=== PATIENT | male | born 1960 | race Caucasian/White ===

== ENCOUNTER 2023-11-26 09:52 | Outpatient (AMB) | payer OTHER, SELFPAY ==
--- NOTE | 2023-11-26 10:01 | A.OFFPC_ITS ---
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 Tera Pradhan Last office visit/CPE: January, Acute issue(s): Middle?finger?periungual?abscess PMHx: Gout, R olecranon bone spur, Sarcidoisis SurgHx: R olecranon bone spur. Neck LN biopsy. FHx: Dad: DM type 1. Mom: Breast CA, Lung CA. Brother: Prostate CA & Alcoholism SocHx: Smokes cigars 2-3 a week. EtOH: q.o.d. 2-3 drinks per episode. PFSH Medical History (Updated 11/26/23 @ 10:46 by Austin Paulson) High urine uric acid level Bone spur Family History (Updated 11/26/23 @ 10:09 by Jacque Hemphill CULTURIST) Mother Breast cancer Lung cancer Father Diabetes Brother Prostate cancer Substance abuse in family Social History (Updated 11/26/23 @ 10:12 by Jacque Hemphill CMA) Household Members: Spouse Both parents involved: No Caregiver staying overnight: No Housing: House Are you a primary healthcare administration intern to a significant other at home: No Do you presently have visiting nurse or other home services: No 75 years or older and lives alone: No Alcohol intake: current Alcohol intake frequency: a few times a week Alcohol type: beer, wine and hard liquor Tobacco use type: Cigar Cigarette Packs Per Day: 2 (weekly) e-Cigarette/Vaping Use: Never Used Have you been hit, kicked, punched, or otherwise hurt by someone within the past year? If so, by whom?: No Do you feel safe in your current relationship?: Yes Is there a partner from a previous relationship who is making you feel unsafe now?: No Are you made to feel afraid or neglected: No [employer] Healthcare Practices: Tenriism Are you DNR?: No Advance Directives: No Healthcare Proxy: No service: No Current occupational status: retired Cognitive needs: No Hearing needs: No Vision needs: Yes (Patient wears reading glasses.) Questionnaire PHQ-9 Over the last 2 weeks, how often have you been bothered by any of the following problems? 1. Little interest or pleasure in doing things: not at all 2. Feeling down, depressed, or hopeless: not at all 3. Trouble falling or staying asleep, or sleeping too much: several days 4. Feeling tired or having little energy: not at all 5. Poor appetite or overeating: not at all 6. Feeling bad about yourself - or that you are a failure or have let yourself or your family down: not at all 7. Trouble concentrating on things, such as reading the newspaper or watching television: not at all 8. Moving or speaking so slowly that other people could have noticed. Or the opposite - being so fidgety or restless that you have been moving around a lot more than usual: not at all 9. Thoughts that you would be better off or of hurting yourself in some way: not at all Total score: 1 Depression Screening Interpretation: Negative Depression Screening Done: Yes 27327 - PHQ-9 Billing: Yes Source: Developed by Drs. Harmna La, Xiomy Lock, Eb Haynes and colleagues, with an educational lauren from [employer]. Thrive Questionnaire Date Thrive assessed: 11/26/23 I am a: Patient What is your living situation today?: I have a steady place to live Within the past 12 months, did the food you bought not last and you didn't have the money to get more?: Never true Within the past 12 months, did you worry whether your food would run out before you got money to buy more?: Never true Do you have trouble paying for medicines?: No Do you have trouble getting transportation to medical appointments?: No Do you have trouble paying your heating and electricity bill?: No Do you have trouble taking care of your child, family member or friend?: No Do you have trouble with day-to-day activities such as bathing, preparing meals, shopping, managing finances, etc.?: No Are you currently unemployed and looking for a job?: No Are you interested in more education?: No THRIVE Score: 0 AUDIT C Alcohol Use Questionnaire (AUDIT-C) 1. How often do you have a drink containing alcohol?: 2-3 times a week 2. How many drinks containing alcohol do you have on a typical day when you are drinking?: 3 or 4 3. How often do you have six or more drinks on one occasion?: Weekly Total Score: 7 JIM-7 AMB Questionnaire JIM-7 Date JIM - 7 assessed: 11/26/23 Feeling nervous, anxious, or on edge: 0 = Not at all Not being able to stop or control worryin = Not at all Worrying too much about different things: 0 = Not at all Trouble relaxin = Not at all Being so restless that it is hard to sit still: 0 = Not at all Becoming easily annoyed or irritable: 0 = Not at all Feeling afraid as if something awful might happen: 0 = Not at all Total JIM-7 score (0-4 normal; 5-9 mild; 10-14 moderate; 15-21 severe): 0 Source: Developed by Drs. Harman La, Xiomy Lock, Eb Haynes and colleagues, with an educational lauren from [employer]. JIM-7 Assessment Billing JIM-7 Assessment Tool: JIM-7 Assessment 23788 Review of Systems Const Denies chills, Denies fatigue, Denies fever(s), Denies headache(s) and Denies weakness ENT Denies dizziness and Denies headache(s) Card Denies chest pain, Denies lightheadedness, Denies dyspnea and Denies other (Palpitations) Resp Denies cough, Denies dyspnea, Denies wheezing and Denies other ( shortness of breath) Musc Denies numbness and Denies tingling Neuro Denies dizziness, Denies headache(s), Denies numbness, Denies tingling, Denies p aresthesias and Denies weakness Psych Denies anxiety and Denies depression Endo Denies fatigue Aller/Immun Denies wheezing Physical exam (Primary Care) Vital Signs: Last Vital Signs Pulse 73 11/26/23 10:02 BP 122/77 11/26/23 10:02 Pulse Ox 96 11/26/23 10:02 Oxygen Delivery Method Room Air 11/26/23 10:02 BMI result Body Mass Index 35.0 Tobacco/Smoking Status: Tobacco use Status Tobacco use date assessed 11/26/23 11/26/23 10:19 Tobacco use type Cigar 11/26/23 10:19 e-Cigarette/Vaping Use Never Used 11/26/23 10:19 PHQ-9: PHQ-9 Score PHQ-9: Total score 1 11/26/23 10:21 Depression Screening Interpretation: Negative Thrive Assessment: Date of Thrive Assessment Date Thrive assessed 11/26/23 11/26/23 10:05 Const General: no acute distress and well developed Nutritional Appearance: well nourished Orientation/consciousness: patient oriented x3 HENMT Head: Yes normocephalic and Yes atraumatic Eyes General: appearance normal, both eyes and all related structures Pupils: Equal, round and reactive pupils present EOM: EOMs intact bilaterally Resp Effort & Inspection: normal respiratory effort Auscultation: clear to auscultation bilaterally Cardio Rate: regular rate Rhythm: regular rhythm Heart sounds: S1 normal heart sound present, S2 normal heart sound present, no gallops, no murmurs and no rubs Neuro General: patient oriented x3 and gait normal Cranial nerves: Yes Equal, round and reactive pupils present Psych Affect: normal affect Assessment and Plan Assessment & Plan (1) Abscess of finger: Code(s): L02.519 - Cutaneous abscess of unspecified hand Plan: Patient?incised?and?drained?this?at?home?and?has?had?recurrent?Epson?salt?soaks. Infection?appears?to?have?resolved?though?he?still?has?mild?swelling Continue?to?monitor Call?or?return?to?office?if?infection?returns?and?we?could?use?an?antibiotic?and ?perform?another?I?and?D?if?necessary. (2) Gout: Code(s): M10.9 - Gout, unspecified Plan: History?of?gout?and?elevated?uric?acid?levels. He?is?on?allopurinol?300?mg?daily Stable Continue?allopurinol?as?prescribed (3) Sarcoidosis: Code(s): D86.9 - Sarcoidosis, unspecified Plan: History?of?sarcoidosis?about?30?years?ago?with?no?further?recurrence. (4) Laboratory exam ordered as part of routine general medical examination: Code(s): Z00.00 - Encounter for general adult medical examination without abnormal findings Plan: Check?lab Orders: Orders Lipid Panel Today Z00.00 - Encounter for general adult medical examination without abnormal findings Microalbumin, Random (w Creat) Today I10 - Essential (primary) hypertension TSH reflex Free T4 Today Z00.00 - Encounter for general adult medical examination without abnormal findings UA and rflx microscopic Today Z00.00 - Encounter for general adult medical examination without abnormal findings Uric Acid Today M10.9 - Gout, unspecified Comprehensive Billings. Panel Fast Today Z00.00 - Encounter for general adult medical examination without abnormal findings Prostate Specific Antigen Scr Today Z12.5 - Encounter for screening for malignant neoplasm of prostate Coding Level of Care Code New Pt Level 3 (39149) Diagnoses Abscess of finger L02.519 Gout M10.9 Sarcoidosis D86.9 Laboratory exam ordered as part of routine general medical examination Z00.00 Additional Codes JIM-7 Assessment Billing - JIM-7 Assessment Tool: JIM-7 Assessment 82136 ([id number])
[2023-11-26 10:02] VITALS: BP 122/77; PULSE 73; O2SAT 96; BMI 35.0
== END 2023-11-26 10:53 | disposition home or self-care (01) ==
PROVIDERS: PCP Family Medicine; Visit Provider Family Medicine
DX: L02.519 Cutaneous abscess of unspecified hand (principal); M10.9 Gout, unspecified; D86.9 Sarcoidosis, unspecified; Z00.00 Encounter for general adult medical examination without abnormal findings
CPT/HCPCS: 99203

== ENCOUNTER 2024-02-09 09:06 | Outpatient (REF) | payer OTHER, SELFPAY ==
[2024-02-09 11:16] LABS: Appearance Urine Clear; Color Urine Yellow; Glucose Urine UA Negative (Negative); Leukocyte Esterase Urine Negative (Negative); Nitrite Urine Negative (Negative); Urine Blood Negative (Negative); Urine Ketones Negative (Negative); Urine Protein Negative (Neg-Trace)
[2024-02-09 11:35] LABS: Alanine Aminotransferase 22 U/L (0-40); Albumin Level 4.6 g/dL (3.5-5.0); Alkaline Phosphatase 65 U/L (39-117); Anion Gap 12 (12-20); Aspartate Amino Transferase 29 U/L (5-37); Bilirubin Total 0.4 mg/dL (0.0-1.0); Blood Urea Nitrogen 15 mg/dL (9-16); Calcium 9.8 mg/dL (8.4-10.2); Carbon Dioxide 28 mmol/L (22-29); Chloride 102 mmol/L (96-108); Cholesterol 219 mg/dL (<200); Estimated Glomerular Filt Rate > 60; Glucose Fasting 96 mg/dL (60-99); HDL Cholesterol 71 mg/dL (>40); LDL Cholesterol Calculated 134 mg/dL (<100); Potassium 4.2 mmol/L (3.3-5.1); Sodium 138 mmol/L (135-145); Total Protein 7.6 g/dL (6.5-8.0); Triglycerides 73 mg/dL (<150)
[2024-02-09 11:52] LABS: Creatinine Urine 32.54 mg/dL; Microalbumin Urine < 5.0 mg/L
[2024-02-09 11:55] LABS: Prostate Specific Antigen Scr 1.67 ng/mL (<0.05-4.0)
[2024-02-09 11:57] LABS: TSH reflex Free T4 1.14 uIU/mL (0.32-4.0)
[2024-02-09 12:05] LABS: Uric Acid 5.2 mg/dL (3.4-7.0)
== END 2024-02-09 09:07 | disposition home or self-care (01) ==
LOC: HO.WFDLDS 09:06
PROVIDERS: Visit Provider Family Medicine
DX: Z00.00 Encounter for general adult medical examination without abnormal findings (principal); I10 Essential (primary) hypertension; Z12.5 Encounter for screening for malignant neoplasm of prostate; M10.9 Gout, unspecified
CPT/HCPCS: 36415; 80053; 80061; 81003; 82570; 84153; 84443; 84550

== ENCOUNTER 2024-02-17 08:51 | Outpatient (AMB) | payer OTHER, SELFPAY ==
--- NOTE | 2024-02-17 09:03 | MHC.PC.OV ---
Vital Signs 02/17/24 09:08 Height 5 ft 10.5 in Weight 267 lb BMI 37.8 BP 120/77 Blood Pressure Location Rt brachial Position Sitting Pulse 67 Pulse Source Pulse Oximeter Temp 97.5 F Temp Source Temporal Artery Scan Pulse Oximetry (%) 97 Oxygen Delivery Method Room Air Intake Visit Reasons: CPE with f/u labs and health maint Intake Note: Patient is here for a physical. Patient reports he would like a referral for dermatology. Patient would like to discuss allopurinol and its ability to raise LFT. Patient would like to test for liver. Log Deckman Required: No Accompanied by: Self / Same As Patient Allergies No Known Allergies Allergy (Verified 02/17/24 09:14) Tobacco use date assessed: 11/26/23 Dental Screening Dental Screen Date: 11/26/23 HPI HPI Comments History of Present Illness Details 63 year old male with borderline hyperlipidemia, gout, hyperuricemia, remote sarcoid presenting to establish care and for physical exam Gout: on allopurinol. No recent episodes of gout Approx 20 years ago patient had unintentional weight loss. Biopsy of lymph node-lymphoma or sarcoid. More consistent with sarcoid. as treated with steroids gained weight and has done good since Colonoscopy with Shelton Dickerson in 2022-polyp was told to repeat in 3 years UTD shingles vaccine ROS CONSTITUTIONAL: Denies weight loss, fever and chills. HEENT: Denies changes in vision and hearing. RESPIRATORY: Denies SOB and cough. CV: Denies palpitations and CP GI: Denies abdominal pain, nausea, vomiting and diarrhea. : Denies dysuria and urinary frequency. MSK: Denies new myalgia and joint pain. SKIN: Denies rash and pruritus. NEUROLOGICAL: Denies headache PSYCHIATRIC: Denies recent changes in mood. PHYSICAL EXAM: GENERAL: Alert and oriented x 3. NAD EYES: EOMI. Anicteric. HENT: Moist mucous membranes. No scleral icterus. No cervical lymphadenopathy. LUNGS: Clear to auscultation bilaterally. CARDIOVASCULAR: Regular rate and rhythm. No murmur. No JVD. ABDOMEN: Soft, non-tender +bs EXTREMITIES: No edema. Non-tender. SKIN: No rashes or lesions. Warm. NEUROLOGIC: No focal neurological deficits. CN II-XII grossly intact PSYCHIATRIC: Cooperative. Appropriate mood and affect [facility] Medical History (Updated 02/22/24 @ 21:04 by Ijeoma Sood MD) High urine uric acid level Bone spur Family History (Updated 11/26/23 @ 10:09 by Jacque Hemphill CMA) Mother Breast cancer Lung cancer Father Diabetes Brother Prostate cancer Substance abuse in family Social History (Updated 11/26/23 @ 10:12 by Jacque Hemphill CMA) Household Members: Spouse Both parents involved: No Caregiver staying overnight: No Housing: House Are you a primary critical care specialist to a significant other at home: No Do you presently have visiting nurse or other home services: No 75 years or older and lives alone: No Alcohol intake: current Alcohol intake frequency: a few times a week Alcohol type: beer, wine and hard liquor Patient Tobacco Use Status: Current someday Tobacco user Tobacco use type: Cigar Cigarette Packs Per Day: 2 (weekly) e-Cigarette/Vaping Use: Never Used service: No Current occupational status: retired Cognitive needs: No Hearing needs: No Vision needs: Yes (Patient wears reading glasses.) Questionnaire Thrive Questionnaire Date Thrive assessed: 11/26/23 JIM-7 AMB Questionnaire JIM-7 Date JIM - 7 assessed: 11/26/23 Source: Developed by Drs. Harman La, Xiomy Lock, Eb Haynes and colleagues, with an educational lauren from [employer]. Physical exam (Primary Care) Vital Signs: Last Vital Signs Temp 97.5 F 02/17/24 09:08 Pulse 67 02/17/24 09:08 BP 120/77 02/17/24 09:08 Pulse Ox 97 02/17/24 09:08 Oxygen Delivery Method Room Air 02/17/24 09:08 BMI result Body Mass Index 37.8 Tobacco/Smoking Status: Tobacco use Status Tobacco use date assessed 11/26/23 02/17/24 09:03 Patient Tobacco Use Status Current someday Tobacco 02/17/24 09:12 Tobacco use type Cigar 02/17/24 09:03 e-Cigarette/Vaping Use Never Used 02/17/24 09:03 Thrive Assessment: Date of Thrive Assessment Date Thrive assessed 11/26/23 02/17/24 09:03 Assessment and Plan Assessment & Plan (1) Sarcoidosis: Code(s): D86.9 - Sarcoidosis, unspecified (2) Gout: Code(s): M10.9 - Gout, unspecified (3) Laboratory exam ordered as part of routine general medical examination: Code(s): Z00.00 - Encounter for general adult medical examination without abnormal findings Plan: Preventive measures for age discussed. Chronic medical conditions reviewed Orders: Referrals Dermatology Referral L57.0 - Actinic keratosis Coding Level of Care Code Est Pt Prev Care 40-64y(13663) Diagnoses Sarcoidosis D86.9 Gout M10.9 Laboratory exam ordered as part of routine general medical examination Z00.00
[2024-02-17 09:08] VITALS: BP 120/77; PULSE 67; TEMP 36.4; O2SAT 97; BMI 37.8
== END 2024-02-17 09:57 | disposition home or self-care (01) ==
PROVIDERS: PCP Internal Medicine; Visit Provider Internal Medicine
DX: D86.9 Sarcoidosis, unspecified (principal); M10.9 Gout, unspecified; Z00.00 Encounter for general adult medical examination without abnormal findings
CPT/HCPCS: 99396

== ENCOUNTER 2024-06-01 08:34 | Outpatient (AMB) | payer OTHER, SELFPAY ==
--- NOTE | 2024-06-01 08:47 | MHC.PC.OV ---
Vital Signs 06/01/24 08:51 Height 5 ft 10.5 in Weight 250 lb 6 oz BMI 35.4 BP 110/70 Blood Pressure Location Rt brachial Position Sitting Respiration 14 Pulse 73 Pulse Source Pulse Oximeter Pulse Oximetry (%) 97 Oxygen Delivery Method Room Air Intake Visit Reasons: back & leg pain Intake Note: Lower right back pain. 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 Lower back pain -about belt line worse on the right some radiation down the buttock and right leg. Denies right leg weakness. No b/b incontinence. Advil helps the pain Went to PT in the to chiropractor-did manipulation then TENS in past which helped. Gout: on allopurinol. No recent episodes of gout Approx 20 years ago patient had unintentional weight loss. Biopsy of lymph node-lymphoma or sarcoid. More consistent with sarcoid. as treated with steroids gained weight and has done good since Colonoscopy with Shelton Dickerson in 2022-polyp was told to repeat in 3 years UTD shingles vaccine ROS see HPI PHYSICAL EXAM: GENERAL: Alert and oriented x 3. NAD EYES: EOMI. Anicteric. HENT: Moist mucous membranes. No scleral icterus. No cervical lymphadenopathy. LUNGS: Clear to auscultation bilaterally. CARDIOVASCULAR: Regular rate and rhythm. No murmur. No JVD. ABDOMEN: Soft, non-tender +bs MSK: Right lumbar paraspinal spasm EXTREMITIES: No edema. Non-tender. SKIN: No rashes or lesions. Warm. NEUROLOGIC: No focal neurological deficits. 5/5 LE strength bilaterally CN II-XII grossly intact PSYCHIATRIC: Cooperative. Appropriate mood and affect [facility] Medical History (Updated 06/02/24 @ 16:07 by Ijeoma Sood MD) High urine uric acid level Bone spur Family History (Updated 11/26/23 @ 10:09 by Jacque Hemphill CMA) Mother Breast cancer Lung cancer Father Diabetes Brother Prostate cancer Substance abuse in family Social History (Updated 11/26/23 @ 10:12 by Jacque Hemphill [facility] [address]) Household Members: Spouse Both parents involved: No Caregiver staying overnight: No Housing: House Are you a primary adult caregiver to a significant other at home: No Do you presently have visiting nurse or other home services: No 75 years or older and lives alone: No Alcohol intake: current Alcohol intake frequency: a few times a week Alcohol type: beer, wine and hard liquor Patient Tobacco Use Status: Current someday Tobacco user Tobacco use type: Cigar Cigarette Packs Per Day: 2 (weekly) e-Cigarette/Vaping Use: Never Used service: No Current occupational status: retired Cognitive needs: No Hearing needs: No Vision needs: Yes (Patient wears reading glasses.) Questionnaire PHQ-9 Over the last 2 weeks, how often have you been bothered by any of the following problems? 1. Little interest or pleasure in doing things: not at all 2. Feeling down, depressed, or hopeless: not at all 3. Trouble falling or staying asleep, or sleeping too much: not at all 4. Feeling tired or having little energy: not at all 5. Poor appetite or overeating: not at all 6. Feeling bad about yourself - or that you are a failure or have let yourself or your family down: not at all 7. Trouble concentrating on things, such as reading the newspaper or watching television: not at all 8. Moving or speaking so slowly that other people could have noticed. Or the opposite - being so fidgety or restless that you have been moving around a lot more than usual: not at all 9. Thoughts that you would be better off or of hurting yourself in some way: not at all Total score: 0 Source: Developed by Drs. Harman La, Xiomy Lock, Eb Haynes and colleagues, with an educational lauren from [employer]. Thrive Questionnaire Date Thrive assessed: 05/29/24 I am a: Patient What is your living situation today?: I have a steady place to live Within the past 12 months, did the food you bought not last and you didn't have the money to get more?: Never true Within the past 12 months, did you worry whether your food would run out before you got money to buy more?: Never true Do you have trouble paying for medicines?: No Do you have trouble getting transportation to medical appointments?: No Do you have trouble paying your heating and electricity bill?: No Do you have trouble taking care of your child, family member or friend?: No Do you have trouble with day-to-day activities such as bathing, preparing meals, shopping, managing finances, etc.?: No Are you currently unemployed and looking for a job?: No Are you interested in more education?: No Please select the resources that you would like help with: None Currently or been in a relationship where the following occur: No concerns reported THRIVE Score: 0 AUDIT C Alcohol Use Questionnaire (AUDIT-C) 1. How often do you have a drink containing alcohol?: 2-3 times a week 2. How many drinks containing alcohol do you have on a typical day when you are drinking?: 1 or 2 3. How often do you have six or more drinks on one occasion?: Never Total Score: 3 JIM-7 AMB Questionnaire JIM-7 Date JIM - 7 assessed: 11/26/23 Feeling nervous, anxious, or on edge: 0 = Not at all Not being able to stop or control worryin = Not at all Worrying too much about different things: 0 = Not at all Trouble relaxin = Not at all Being so restless that it is hard to sit still: 0 = Not at all Becoming easily annoyed or irritable: 0 = Not at all Feeling afraid as if something awful might happen: 0 = Not at all Total JIM-7 score (0-4 normal; 5-9 mild; 10-14 moderate; 15-21 severe): 0 Source: Developed by Drs. Harman La, Xiomy Lock, Eb Haynes and colleagues, with an educational lauren from [employer]. Physical exam (Primary Care) Vital Signs: Last Vital Signs Pulse 73 06/01/24 08:51 Resp 14 06/01/24 08:51 BP 110/70 06/01/24 08:51 Pulse Ox 97 06/01/24 08:51 Oxygen Delivery Method Room Air 06/01/24 08:51 BMI result Body Mass Index 35.4 Tobacco/Smoking Status: Tobacco use Status Tobacco use date assessed 11/26/23 06/01/24 08:48 Patient Tobacco Use Status Current someday Tobacco 06/01/24 08:48 Tobacco use type Cigar 06/01/24 08:48 e-Cigarette/Vaping Use Never Used 06/01/24 08:48 PHQ-9: PHQ-9 Score PHQ-9: Total score 0 06/01/24 09:05 Thrive Assessment: Date of Thrive Assessment Date Thrive assessed 05/29/24 06/01/24 08:48 Currently or been in a relationship where the following occur: No concerns reported Coding Level of Care Code Est Pt Level 4 (87139) Diagnoses Acute right-sided low back pain with right-sided sciatica M54.41 Chronicity: acute Back pain laterality: right Sciatica presence: with sciatica Sciatica laterality: sciatica of right side Assessment & Plan Assessment & Plan (1) Low back pain: Code(s): M54.50 - Low back pain, unspecified Category: Medical Qualifiers: Chronicity: acute Back pain laterality: right Sciatica presence: with sciatica Sciatica laterality: sciatica of right side Qualified Code(s): M54.41 - Lumbago with sciatica, right side Plan: Acute muscular strain versus annular tear versus herniated disc Prednisone sent, muscle relaxer before bed Gentle stretching. Ice/heat Xray ordered. Had previous remotely with DDD Orders: Orders XR lumbar spine 2-3V 06/01/24 M54.50 - Low back pain, unspecified Referrals Physiatry Referral M54.50 - Low back pain, unspecified Medications: New prednisone 40 mg (2 x 20 mg) PO DAILY 10 tabs 0RF 5 days cyclobenzaprine 10 mg PO BEDTIME PRN 30 tabs 0RF muscle spasm
[2024-06-01 08:51] VITALS: BP 110/70; PULSE 73; RESP 14; O2SAT 97; BMI 35.4
== END 2024-06-01 09:32 | disposition home or self-care (01) ==
PROVIDERS: PCP Internal Medicine; Visit Provider Internal Medicine
DX: M54.41 Lumbago with sciatica, right side (principal)

== ENCOUNTER 2024-06-01 08:34 | Outpatient (REF) | payer OTHER, SELFPAY ==
--- NOTE | ~2024-06-01 | XR_ITS ---
EXAMINATION: XR LUMBOSACRAL SPINE CLINICAL INFORMATION: Low back pain COMPARISON: None available. TECHNIQUE: Three views of the lumbosacral spine. FINDINGS: Mild multilevel degenerative disc disease with prominent anterior endplate osteophytes. No fracture or malalignment. No spondylolysis or spondylolisthesis. XR/XR lumbar spine 2-3V IMPRESSION: Mild multilevel degenerative disc disease. No acute abnormality. Electronically signed by: Ezio Louis MD 06/01/2024 11:46 AM [facility]
== END 2024-06-01 08:35 | disposition home or self-care (01) ==
LOC: HO.XRAY 08:34
PROVIDERS: PCP Internal Medicine; Visit Provider Internal Medicine
DX: M54.41 Lumbago with sciatica, right side (principal)
CPT/HCPCS: 72100; 96127; 99212

== ENCOUNTER 2025-02-15 10:47 | Outpatient (REF) | payer OTHER, SELFPAY ==
--- OUTSIDE RECORDS SUMMARY | 2025-02-15 11:57 | XMS_ITS ---
Author Name [facility] Organization Unknown Encounters Encounter Type Encounter Reason Primary Diagnosis Location Date Ambulatory [facility] 12/11/2023 Ambulatory Encounter for screening for malignant neoplasm of colon Encounter for screening for malignant neoplasm of colon [facility] 02/27/2023 Care Team Organization Name Specialty Phone Email Start Date End Da te [facility] 06/05/2023 [facility] 3 [facility] 3 02/27/2023
--- OUTSIDE RECORDS SUMMARY | 2025-02-15 11:57 | XMS_ITS | Clinical Summary ---
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 Name Role Phone Unavailable Primary Care Provider Unavailabl e Social History Tobacco Use Types Packs/Day Years Used Date Smoking Tobacco: Never Assessed Sex and Gender Information Value Date Recorded Sex Assigned at Not on file Legal Sex Male 12:41 PM EDT Gender Identity Not on file Sexual Orientation Not on file Plan of Treatment Health Maintenance Due Date Last Done Comments Hepatitis C Virus Screening 1960 HIV Screening 1975 DTaP/Tdap/Td Vaccines (1 - Tdap) 1981 Pneumococcal Vaccines 50+ (1 of 1 - PCV) 02/25/2012 Zoster (Shingles) Vaccine (1 of 2) 02/25/2012 COVID-19 Vaccine ( - 2023-2 5 season) 2024 RSV Vaccine 60 years and old er and Patients (1 - 1-dose 75+ series) 2037 Hepatitis B Vaccines Aged Out No long er eligible based on patient's age to complete this topic
--- OUTSIDE RECORDS SUMMARY | 2025-02-15 11:57 | XMS_ITS | Clinical Summary ---
Author Organization [facility] it Address [id number] [place] [phone] Care Team Providers Care Role Player Name Role Phone Tera Pradhan MD Primary Care Provider [phone] Social History Tobacco Use Types Packs/Day Years Used Date Smoking Tobacco: Never Assessed Sex and Gender Information Value Date Recorded Sex Assigned at Not on file Legal Sex Male 7:41 AM EST Gender Identity Not on file Sexual Orientation Not on file Plan of Treatment Health Maintenance Due Date Last Done Comments DTaP,Tdap,and Td Vaccines (1 - Tdap) 1981 Pneumococcal Vaccine: 50+ Ye ars (1 of 1 - PCV) 02/25/2012 Zoster Vaccines (1 of 2) 02/25/2012 Cholesterol Screening (Lipid Panel) 06/23/2022 Colorectal Cancer Screening: Colonoscopy 06/23/2022 HIV Screening 06/23/2022 Hepatitis C Screening 06/23/2022 Social Influencers of Health Screening 06/23/2022 COVID-19 Vaccine ( - 2023-2 5 season) 2024 Depression Screening 07/21/2024 Influenza Vaccine (#1) 2025 RSV Immunization Adult Patie nts (1 - 1-dose 75+ series) 2037 HIB Vaccines Aged Out No longer eligi ble based on patient's age to complete this topic HPV Vaccines Aged Out No longer eligi ble based on patient's age to complete this topic Hepatitis A Vaccines Aged Out No long er eligible based on patient's age to complete this topic Hepatitis B Vaccines Aged Out No long er eligible based on patient's age to complete this topic IPV Vaccines Aged Out No longer eligi ble based on patient's age to complete this topic MMR Vaccines Aged Out No longer eligi ble based on patient's age to complete this topic Meningococcal ACWY Vaccine Aged Out N o longer eligible based on patient's age to complete this topic Meningococcal B Vaccine Aged Out No l onger eligible based on patient's age to complete this topic RSV Immunization Patients Un shani 20 months Aged Out No longer eligible b ased on patient's age to complete this topic Varicella Vaccines Aged Out No longer eligible based on patient's age to complete this topic Care Teams Role Player Relationship Specialty Start Date End Date Tera Pradhan MD [address] [place] [phone] PCP - General 03/03/23
--- OUTSIDE RECORDS SUMMARY | 2025-02-15 11:57 | XMS_ITS | Clinical Summary ---
Author Organization [facility] [employer] [facility] Address [address] [place] [address] Care Team Providers Care Specimen Collector Name Role Phone Tera Pradhan MD Primary Care Provider Unavaila ble Allergies No known active allergies Medications Medication Sig Dispensed Refills Start Date End Date Status ALLOPURINOL PO Take by mouth. 0 Active Social History Tobacco Use Types Packs/Day Years Used Date Smoking Tobacco: Never Assessed Sex and Gender Information Value Date Recorded Sex Assigned at Not on file Gender Identity Not on file Sexual Orientation Not on file Job Start Date Occupation Industry Not on file Not on file Not on file Plan of Treatment Health Maintenance Due Date Last Done Comments Hepatitis C Screening 1962 COVID-19 Vaccine (#1) 1962 Depression Screening 1974 Preventative Health Evaluation 02/25/1980 DTap / Tdap / Td (1 - Tdap) 1981 Colon Cancer Screening (Colonoscopy) 2007 Shingrix-Zoster Vaccine (2 of 2) 02/21/2022 12/28/19 22 Influenza Vaccine (#1) 2025 RSV Adult > 60+ Yrs or Pregn ant (1 - 1-dose 75+ series) 2037 Hepatitis B Vaccines Aged Out No long er eligible based on patient's age to complete this topic Pneumococcal Vaccine Aged Out No long er eligible based on patient's age to complete this topic RSV Ped < 20 months Aged Out No longe r eligible based on patient's age to complete this topic Care Teams Specimen Collector Relationship Specialty Start Date End Date Tera Pradhan MD PCP - General Family Medicine 03/03/23
--- OUTSIDE RECORDS SUMMARY | 2025-02-15 11:57 | XMS_ITS | Clinical Summary ---
Author Organization [facility] Address [address] [facility] [address] [place] [phone] Phone Care Team Providers Care Bilingual Medical Receptionist Name Role Phone Ijeoma Martinez MD Primary Care Provider Allergies No known active allergies Medications allopurinol (ZYLOPRIM) 300 MG tablet Take 1 tablet by mouth every morning. 12/15/2023 Active Active Problems No known active problems Immunizations Immunization Administration Dates Next Due Tdap 03/04/2024 Social History Tobacco Use Types Packs/Day Years Used Date Smoking Tobacco: Never Assessed Education Answer Date Recorded Are you interested in more education? Not on truman e 03/04/2024 Are you concerned about learning? Not on file 03/04/2024 No 03/04/2024 No 03/04/2024 Digital Access Answer Date Recorded No 03/04/2024 No 03/04/2024 Reliable internet access at home? Not on file 03/04/2024 Device with a working camera? Not on file Sex and Gender Information Value Date Recorded Sex Assigned at Not on file Legal Sex Male 4:21 PM EDT Gender Identity Not on file Sexual Orientation Not on file Last Filed Vital Signs Vital Sign Reading Time Taken Comments Blood Pressure 117/80 03/04/2024 5:41 PM EDT Pulse 71 03/04/2024 5:41 PM EDT Temperature 36.8 C (98.2 F) 03/04/2024 5:41 PM EDT Respiratory Rate 20 03/04/2024 5:41 PM EDT Oxygen Saturation 97% 03/04/2024 5:41 PM EDT Inhaled Oxygen Concentration - - Weight - - Height - - Body Mass Index - - Plan of Treatment Health Maintenance Due Date Last Done Comments CREATININE LEVEL 1962 LIPID PANEL 1962 DEPRESSION SCREENING 1974 SMOKING Hx and SMOKELESS TOB ACCO SCREENING 1975 HEPATITIS C SCREENING 02/25/1980 HIV ONE-TIME SCREENING (18-6 5 YEARS) 02/25/1980 COLOGUARD 2007 COLONOSCOPY 2007 COLORECTAL CANCER SCREENING 2007 FIT TEST 2007 FOBT 2007 SIGMOIDOSCOPY 2007 VIRTUAL COLONOSCOPY 2007 PNEUMOCOCCAL VACCINES (50+ y ears) (1 of 1 - PCV) 02/25/2012 ZOSTER VACCINES (2 of 2) 08/11/2022 06/16/2022 COVID-19 VACCINE (2 - 2023-2 5 season) 2024 10/26/2020 Adult Td,Tdap Booster 03/04/2034 03/04/2024 RSV VACCINE (1 - 1-dose 75+ series) 2037 HEPATITIS A VACCINES Aged Out No long er eligible based on patient's age to complete this topic HIB VACCINES Aged Out No longer eligi ble based on patient's age to complete this topic MENINGOCOCCAL VACCINES (ACWY) Aged Out No longer eligible based on patient's age to complete this topic MENINGOCOCCAL VACCINES (B) Aged Out N o longer eligible based on patient's age to complete this topic Medical Devices Not on file [facility] P[facility] DANGELO ROSALES [facility] NON NSPG [facility] [address] [place] [address] NON NSPG PCP [facility] NON NSPG [facility] NON NSPG [facility]CP [facility] NON NSPG PCP [facility] Care Teams Bilingual Medical Receptionist Relationship Specialty Start Date End Date Ijeoma Martinez MD PCP - General Internal Medicine 03/04/24 Additional Source Comments The information contained in this document represents components of the legal health record. It is not the complete legal health record.[facility]
[2025-02-15 14:01] LABS: MANUAL DIFF FLAG NO
[2025-02-15 14:14] LABS: Hematocrit 41.8 % (42.0-52.0); Hemoglobin 14.2 g/dl (14.0-18.0); Imm Gran Abs Auto 0.01 X10*3/uL (0.00-0.03); Imm Gran Pct Auto 0.1 % (0.0-0.4); Lymphocytes Absolute Auto 2.0 X10*3/uL (1.2-4.9); Mean Corpuscular HGB Conc 34.0 g/dl (31.0-36.0); Mean Corpuscular Hemoglobin 31.1 pg (27.0-33.0); Mean Corpuscular Volume 91.7 fL (80.0-98.0); NRBC Abs Auto 0.000 X10*3/uL (0.0-0.012); NRBC Pct Auto 0.0 /100WBC (0.0-0.2); Platelet Count 281 X10*3/uL (160-400); Red Blood Count 4.56 X10*6/uL (4.60-5.80); White Blood Count 6.7 X10*3/uL (4.8-10.8)
[2025-02-15 14:22] LABS: Hemoglobin A1C 126.0621 umol/L; Total Hemoglobin (HGBA1C) 3732.5745 umol/L
[2025-02-15 14:23] LABS: Alanine Aminotransferase 27 U/L (0-40); Albumin Level 4.5 g/dL (3.5-5.0); Alkaline Phosphatase 72 U/L (39-117); Anion Gap 11 (12-20); Aspartate Amino Transferase 39 U/L (5-37); Blood Urea Nitrogen 12 mg/dL (9-16); Calcium 9.0 mg/dL (8.4-10.2); Carbon Dioxide 25 mmol/L (22-29); Chloride 106 mmol/L (96-108); Cholesterol 213 mg/dL (<200); Estimated Glomerular Filt Rate > 60; HDL Cholesterol 66 mg/dL (>40); Potassium 4.2 mmol/L (3.3-5.1); Sodium 138 mmol/L (135-145); Total Protein 7.2 g/dL (6.5-8.0); Triglycerides 93 mg/dL (<150); Uric Acid 5.3 mg/dL (3.4-7.0)
== END 2025-02-15 10:48 | disposition home or self-care (01) ==
LOC: HO.WFDLDS 10:47
PROVIDERS: Visit Provider Internal Medicine
DX: Z13.228 Encounter for screening for other metabolic disorders (principal); D86.9 Sarcoidosis, unspecified; M10.9 Gout, unspecified; M54.41 Lumbago with sciatica, right side; R35.89 Other polyuria
CPT/HCPCS: 36415; 80053; 80061; 83036; 84550; 85025

== ENCOUNTER 2025-02-22 12:38 | Outpatient (AMB) | payer OTHER, SELFPAY ==
--- NOTE | 2025-02-22 12:43 | MHC.PC.OV ---
Vital Signs 02/22/25 12:45 Height 5 ft 10.5 in Weight 244 lb 8 oz BMI 34.6 BP 126/68 Blood Pressure Location Lt brachial Position Sitting Respiration 14 Pulse 77 Pulse Source Pulse Oximeter Temp 98.6 F Temp Source Oral Pulse Oximetry (%) 97 Oxygen Delivery Method Room Air Intake Visit Reasons: Physical Intake Note: Physical Registered Public Surveyor Required: No Allergies No Known Allergies Allergy (Verified 02/22/25 12:44) Tobacco use date assessed: 02/22/25 Dental Screening Dental Screen Date: 02/22/25 Did you have a dental visit in the last 12 months?: Yes Did you have a dental problem in the last 6 months where you did not have access to dental care?: No Was dental information given to patient?: Patient has dentist HPI HPI Comments History of Present Illness Details 63 year old male with borderline hyperlipidemia, gout, hyperuricemia, remote sarcoid presenting for physical exam. He will be moving to [place] in March MSK: Back pain improved. Saw PSS. Went to PT in the to chiropractor-did manipulation then TENS in past which helped. Gout: on allopurinol. No recent episodes of gout Approx 20 years ago patient had unintentional weight loss. Biopsy of lymph node-lymphoma or sarcoid. More consistent with sarcoid. as treated with steroids gained weight and has done good since Colonoscopy with Shelton Dickerson in 2022-polyp was told to repeat in 3 years UTD shingles vaccine Tdap UTD ROS see HPI PHYSICAL EXAM: GENERAL: Alert and oriented x 3. NAD EYES: EOMI. Anicteric. HENT: Moist mucous membranes. No scleral icterus. No cervical lymphadenopathy. LUNGS: Clear to auscultation bilaterally. CARDIOVASCULAR: Regular rate and rhythm. No murmur. No JVD. ABDOMEN: Soft, non-tender +bs MSK: Right lumbar paraspinal spasm EXTREMITIES: No edema. Non-tender. SKIN: No rashes or lesions. Warm. NEUROLOGIC: No focal neurological deficits. 5/5 LE strength bilaterally CN II-XII grossly intact PSYCHIATRIC: Cooperative. Appropriate mood and affect [facility] Medical History (Updated 02/22/25 @ 13:34 by Ijeoma Sood MD) High urine uric acid level Bone spur Family History (Updated 11/26/23 @ 10:09 by Jacque Hemphill [employer] CONSULTANT) Mother Breast cancer Lung cancer Father Diabetes Brother Prostate cancer Substance abuse in family Social History (Updated 11/26/23 @ 10:12 by Jacque Hemphill [facility]) Household Members: Spouse Housing: House Are you a primary childbirth and infant care teacher to a significant other at home: No Do you presently have visiting nurse or other home services: No Alcohol intake: current Alcohol intake frequency: a few times a week Alcohol type: beer, wine and hard liquor Patient Tobacco Use Status: Current someday Tobacco user Tobacco use type: Cigar (1 a week) e-Cigarette/Vaping Use: Never Used service: No Current occupational status: retired Cognitive needs: No Hearing needs: No Vision needs: Yes (Patient wears reading glasses.) Questionnaire PHQ-9 Over the last 2 weeks, how often have you been bothered by any of the following problems? 1. Little interest or pleasure in doing things: not at all 2. Feeling down, depressed, or hopeless: not at all 3. Trouble falling or staying asleep, or sleeping too much: not at all 4. Feeling tired or having little energy: not at all 5. Poor appetite or overeating: not at all 6. Feeling bad about yourself - or that you are a failure or have let yourself or your family down: not at all 7. Trouble concentrating on things, such as reading the newspaper or watching television: not at all 8. Moving or speaking so slowly that other people could have noticed. Or the opposite - being so fidgety or restless that you have been moving around a lot more than usual: not at all 9. Thoughts that you would be better off or of hurting yourself in some way: not at all Total score: 0 Depression Screening Interpretation: Negative Depression Screening Done: Yes 16220 - PHQ-9 Billing: Yes Source: Developed by Drs. Harman La, Xiomy Lock, Eb Haynes and colleagues, with an educational lauren from [employer]. Thrive Questionnaire Date Thrive assessed: 05/29/24 I am a: Patient What is your living situation today?: I have a steady place to live Within the past 12 months, did the food you bought not last and you didn't have the money to get more?: Never true Within the past 12 months, did you worry whether your food would run out before you got money to buy more?: Never true Do you have trouble paying for medicines?: No Do you have trouble getting transportation to medical appointments?: No Do you have trouble paying your heating and electricity bill?: No Do you have trouble taking care of your child, family member or friend?: No Do you have trouble with day-to-day activities such as bathing, preparing meals, shopping, managing finances, etc.?: No Are you currently unemployed and looking for a job?: No Are you interested in more education?: No Please select the resources that you would like help with: None Currently or been in a relationship where the following occur: No concerns reported THRIVE Score: 0 AUDIT C Alcohol Use Questionnaire (AUDIT-C) 1. How often do you have a drink containing alcohol?: 2-3 times a week 2. How many drinks containing alcohol do you have on a typical day when you are drinking?: 3 or 4 3. How often do you have six or more drinks on one occasion?: Never Total Score: 4 JIM-7 AMB Questionnaire JIM-7 Date JIM - 7 assessed: 11/26/23 Feeling nervous, anxious, or on edge: 0 = Not at all Not being able to stop or control worryin = Not at all Worrying too much about different things: 0 = Not at all Trouble relaxin = Not at all Being so restless that it is hard to sit still: 0 = Not at all Becoming easily annoyed or irritable: 0 = Not at all Feeling afraid as if something awful might happen: 0 = Not at all Total JIM-7 score (0-4 normal; 5-9 mild; 10-14 moderate; 15-21 severe): 0 Source: Developed by Drs. Harman La, Xiomy Lock, Eb Haynes and colleagues, with an educational lauren from [employer]. Physical exam (Primary Care) Vital Signs: Last Vital Signs Temp 98.6 F 02/22/25 12:45 Pulse 77 02/22/25 12:45 Resp 14 02/22/25 12:45 BP 126/68 02/22/25 12:45 Pulse Ox 97 02/22/25 12:45 Oxygen Delivery Method Room Air 02/22/25 12:45 BMI result Body Mass Index 34.6 Tobacco/Smoking Status: Tobacco use Status Tobacco use date assessed 02/22/25 02/22/25 12:48 Patient Tobacco Use Status Current someday Tobacco 02/22/25 12:48 Tobacco use type Cigar (1 a week) 02/22/25 12:48 e-Cigarette/Vaping Use Never Used 02/22/25 12:48 PHQ-9: PHQ-9 Score PHQ-9: Total score 0 02/22/25 12:48 Depression Screening Interpretation: Negative Thrive Assessment: Date of Thrive Assessment Date Thrive assessed 05/29/24 02/22/25 12:48 Currently or been in a relationship where the following occur: No concerns reported Coding Level of Care Code Est Pt Prev Care 40-64y(65741) Diagnoses Physical exam Z00.00 Gout, unspecified cause, unspecified chronicity, unspecified site M10.9 Chronicity: unspecified Gout etiology: unspecified cause Gout site: unspecified site Additional Codes PHQ-9 - 11974 - PHQ-9 Billing: Yes ([id number]) Assessment & Plan Assessment & Plan (1) Physical exam: Code(s): Z00.00 - Encounter for general adult medical examination without abnormal findings (2) Gout: Code(s): M10.9 - Gout, unspecified Category: Medical Qualifiers: Chronicity: unspecified Gout etiology: unspecified cause Gout site: unspecified site Qualified Code(s): M10.9 - Gout, unspecified Plan 64 year old male presenting for CPE Interval history reviewed No interval gout Labs reviewed. PSA ordered Orders: Orders Prostate Specific Antigen Today D64.9 - Anemia, unspecified, Z12.5 - Encounter for screening for malignant neoplasm of prostate Vitamin B12 and Folate Today D64.9 - Anemia, unspecified, Z12.5 - Encounter for screening for malignant neoplasm of prostate TSH reflex Free T4 Today D64.9 - Anemia, unspecified, Z12.5 - Encounter for screening for malignant neoplasm of prostate Medications: New allopurinol 300 mg PO DAILY 90 tabs 3RF
[2025-02-22 12:45] VITALS: BP 126/68; PULSE 77; RESP 14; TEMP 37; O2SAT 97; BMI 34.6
--- OUTSIDE RECORDS SUMMARY | 2025-02-22 13:13 | XMS_ITS | Clinical Summary ---
Author Organization [facility] Address [address] [facility] [address] [place] [phone] Phone Care Team Providers Care Enrichment Specialist Name Role Phone Ijeoma Martinez MD Primary [...] topic Medical Devices Not on file [facility] PCP DANGELO ROSALES CONNECTOR[facility] [place] [address] [facility] NON NSPG PCP [facility] [address] NON NSPG PCP [facility] NON NSPG [facility] NON NSPG PCP [facility] NON NSPG PCP [facility] Care Teams Enrichment Specialist Relationship Specialty Start Date End Date Ijeoma Martinez MD PCP - General Internal Medicine 03/04/24 Additional Source Comments The information contained in this document represents components of the legal health record. It is not the complete legal health record.[facility]
--- OUTSIDE RECORDS SUMMARY | 2025-02-22 13:13 | XMS_ITS | Clinical Summary ---
[facility] Address [address] [place] [address] Care Team Providers Care Receiving Tank Operator Name Role Phone Tera Pradhan MD Primary Care Provider [phone] Social History Tobacco Use Types Packs/Day Years [...] age to complete this topic Care Teams Receiving Tank Operator Relationship Specialty Start Date End Date Tera Pradhan MD [address] [place] [phone] PCP - General 03/03/23
--- OUTSIDE RECORDS SUMMARY | 2025-02-22 13:13 | XMS_ITS | Clinical Summary ---
Author Organization [facility] Address [address] [place] [address] Care Team Providers Care Subwarehouse Supervisor Name Role Phone Tera Pradhan MD Primary [...] age to complete this topic Care Teams Subwarehouse Supervisor Relationship Specialty Start Date End Date Tera Pradhan MD PCP - General Family Medicine 03/03/23
--- OUTSIDE RECORDS SUMMARY | 2025-02-22 13:13 | XMS_ITS | Clinical Summary ---
Author Organization [facility] Address [address] [place] [address] Care Team Providers Care Mosaicist Name Role Phone Unavailable Primary Care Provider [...]
== END 2025-02-22 13:27 | disposition home or self-care (01) ==
LOC: HO.HMCFM 12:39
PROVIDERS: PCP Internal Medicine; Visit Provider Internal Medicine
DX: Z00.00 Encounter for general adult medical examination without abnormal findings (principal); M10.9 Gout, unspecified

== ENCOUNTER → 2025-02-22 12:38 | Outpatient (BNVA) | payer OTHER, SELFPAY | PROVIDERS: PCP Internal Medicine; Visit Provider Internal Medicine | DX: Z00.00 Encounter for general adult medical examination without abnormal findings (principal); Z13.31 Encounter for screening for depression; M10.9 Gout, unspecified | CPT/HCPCS: 96127; 99396 ==

== ENCOUNTER 2025-02-22 13:35 | Outpatient (REF) | payer OTHER, SELFPAY ==
[2025-02-22 19:10] LABS: Folate 7.4 ng/mL (> or = 4.0); Prostate Specific Antigen 0.98 ng/mL (<0.05-4.0); Vitamin B12 456 pg/mL (200-900)
== END 2025-02-22 13:36 | disposition home or self-care (01) ==
LOC: HO.WFDLDS 13:35
PROVIDERS: Visit Provider Internal Medicine
DX: Z12.5 Encounter for screening for malignant neoplasm of prostate (principal); D64.9 Anemia, unspecified
CPT/HCPCS: 36415; 82607; 82746; 84153; 84443